=== PATIENT | female | born 1980 | race Caucasian/White ===

== ENCOUNTER 2016-07-12 18:32 | Emergency (ER) | payer MEDICAID ==
[2016-07-12 19:31] LABS: Urine Bilirubin 1 mg/dl (NEGATIVE); Urine Blood Negative /ul (NEGATIVE); Urine Ketone 50 mg/dL (NEGATIVE); Urine Nitrite Negative (NEGATIVE); Urine Protein 15 mg/dL (NEGATIVE); Urine Specific Gravity >=1.030 SP.GR. (1.005-1.010); Urine Urobilinogen Normal (NORMAL)
[2016-07-12 19:41] LABS: Urine Appearance Clear; Urine Bacteria 1+; Urine Color Dark Yellow; Urine RBC TRACE /hpf (0-5); Urine WBC None Seen /hpf (0-5)
[2016-07-12] MEDS ORDERED: DIAZEPAM 5 MG/ML SYRG IM ONE (20:51)
[2016-07-12] MEDS ORDERED: KETOROLAC TROMETHAMINE 60 MG/2 ML VIAL IM ONE ×2 (20:51→21:13)
--- NOTE | 2016-07-12 20:58 | ERNOTE ---
ER Female HPI Date of Service: 07/12/16 Stated Complaint: ABD PAIN Presenting Symptoms: other - Back pain Time Seen by Provider: 07/12/16 20:43 Source: patient, family, RN notes reviewed Exam Limitations: no limitations Immunizations: IMMUNIZATION HX Immunizations Up to Date Yes History of Influenza Vaccine No Allergies/Adverse Reactions: Allergies penicillin V potassium [From Pen-Vee K] Allergy (Intermediate, Verified 15:51) Hives Home Medications: HOME MEDICATIONS clonazePAM [Klonopin] 1 mg PO BID 08/05/15 [Last Taken Unknown] Albuterol Sulfate [Ventolin Hfa] 1 puff IH DAILY 07/12/16 [Last Taken Unknown] HYDROcodone/ACETAMINOPHEN [Hydrocodon-Acetaminophen 5-325] 1 each PO DAILY 07/12 [Last Taken Unknown] Ibuprofen 800 mg PO DAILY 07/12/16 [Last Taken Unknown] - History of Present Illness Narrative: 35 y/o female brought to the ED by her for a sudden onset of low back pain this afternoon. She believes that she has a kidney stone. She also reported hematuria in triage, but on further questioning this seems to have been an episode of vaginal bleeding. Her menses are irregular and she is unsure when her last period was. She also reports that she is supposed to be having back surgery soon. She has not actually seen a back surgeon yet. She has hydrocodone at home for pain. She states she actually gets better results with ibuprofen. Date (Duration): 07/12/16 Time (Timing): 16:30 Timing: Present: other - Improved Activities at Onset: Present: none Associated Symptoms: Present: low back pain. Absent: fever/chills, diaphoresis , nausea, vomiting, abdominal pain, dysuria, urinary frequency, loss of bladder control Review of Systems - Review of Systems Constitutional: Absent: fever, chills EYE: Present: no symptoms reported ENT: Present: no symptoms reported Respiratory: Absent: shortness of breath, cough Cardiology: Absent: chest pain, palpitations Gastrointestinal/Abdominal: Present: See HPI Genitourinary: Present: See HPI Musculoskeletal: Present: back pain. Absent: neck pain, joint pain Skin: Absent: rash, lesions, lumps, change in color Neurological: Absent: headache, dizziness/light-headedness, weakness, numbness, tingling Endocrine: Present: no symptoms reported Hematologic/Lymphatic: Present: no symptoms reported Psych: Present: no symptoms reported - Patient's Past Medical History Patient History - Medical: No pertinent hx, Anxiety, Chronic Pain, Kidney stone Patient History - Cardiac/Respiratory: Asthma, Hypertension Patient History - Cancer: No Hx of Cancer Patient History - Surgical Procedures: Tubal Ligation Patient History - Other: None LMP (females 10-50): unknown - Social History Living Situations: spouse Abuse History: No History of abuse Psych History: Hx of Anxiety Smoking Status: Current every day smoker Alcohol Use: occasionally Drug Use: marijuana - Immunizations Immunizations Up to Date: Yes History of Influenza Vaccine: No Physical Exam - Physical Exam General Appearance: Present: wd/wn, alert, no apparent distress, other - disheveled Neck: Present: normal inspection, nontender, supple, full range of motion Respiratory: Present: no respiratory distress, normal breath sounds, no accessory muscle use, lungs clear Cardiovascular/Chest: Present: regular rate, rhythm, no murmur, normal peripheral pulses Gastrointestinal/Abdominal: Present: normal bowel sounds, nontender, nondistended, soft Back Exam: Present: no CVA tenderness, no vertebral tenderness, other - mild paraspinal muscle tenderness across lumbar region - worse on left Extremity Exam: Present: normal inspection, normal range of motion, no edema Neurological Exam: Present: alert, oriented, normal mood/affect, no motor/ sensory deficits Skin Exam: Present: normal color, warm/dry ED Progress - Vital Signs Patient's Vital Signs:: I have reviewed the patient's vital signs. Vital Signs: Vital Signs 07/12/16 18:53 Temperature 37.3 C Pulse Rate 98 Respiratory 16 Rate Blood Pressure 121/75 O2 Sat by Pulse 98 Oximetry - Progress/Reassessment Chief Complaint: Genitourinary Problem Progress:: Improved Departure Clinical Impression: Low back pain Qualifiers: Chronicity: acute Back pain laterality: bilateral Sciatica presence: without sciatica Qualified Code(s): M54.5 - Low back pain - Departure Disposition: Home Follow Up Needed Condition: Stable Instructions: Back Pain, Adult, [id number] Additional Instructions: Ice/heat to sore area Continue your current meds Follow up with your doctor as needed
[2016-07-12] MEDS ORDERED: DIAZEPAM 5 MG/ML SYRG ONE (21:13)
[2016-07-13 05:09] VITALS: BP 120/79
== END 2016-07-12 21:45 | disposition home or self-care (01) ==
LOC: ER 18:32
DX: M54.5 Low back pain (principal); Z72.0 Tobacco use